=== PATIENT | male | born 1990 ===

== ENCOUNTER 2018-04-06 14:56 | Inpatient (IN) ==
[2018-04-06] MEDS ORDERED: Diphtheria/Tetanus/Pertussis Vaccine Inj 0.5 ML Syringe IM ONE (15:00)
[2018-04-06] MEDS ORDERED: ceFAZolin 2 GM Premix Inj 2 GM/50 ML PIGGYBACK IV.SIG ONE (15:00)
[2018-04-06] MEDS ORDERED: Naloxone Inj 0.4 MG/ML Vial IV.PUSH PRN (15:26)
[2018-04-06] MEDS ORDERED: Post-op Orders (for Pharmacy) OTHER ONE (15:26)
[2018-04-06 15:28] LABS: Baso % (Auto) 0.4 % (0.0-2.0); Eos # (Auto) 0.1 th/mm3 (0.0-0.4); Eos % (Auto) 0.6 % (0.0-4.0); Hematocrit 42.6 % (39.0-51.0); Hemoglobin 14.9 gm/dL (13.0-17.0); Lymph % (Auto) 21.6 % (9.0-44.0); Mean Corpuscular HGB Conc 34.9 % (32.0-36.0); Mean Platelet Volume 8.8 fL (7.0-11.0); Mono # (Auto) 0.5 th/mm3 (0.0-0.9); Mono % (Auto) 5.5 % (0.0-8.0); Neut # (Auto) 6.6 th/mm3 (1.8-7.7); Neut % (Auto) 71.9 % (16.0-70.0); Platelet Count 176 th/mm3 (150-450); Red Blood Count 4.79 mil/mm3 (4.50-5.90); Red Cell Distribution Width 13.9 % (11.6-17.2); White Blood Count 9.2 th/mm3 (4.0-11.0)
[2018-04-06] MEDS ORDERED: Succinylcholine Inj 100 MG/5 ML Syringe IV.PUSH ONE (15:29)
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
[2018-04-06] MEDS ORDERED: Morphine Inj 4 MG/ML Vial IV.PUSH PRN (15:33)
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
[2018-04-06 15:45] LABS: Activated Partial Thrombo Time 20.6 sec (23.4-31.7); INR 1.1 Ratio; Prothrombin Time 10.8 sec (9.8-11.6)
[2018-04-06] MEDS ORDERED: Sugammadex Inj 200 MG/2 ML Vial IV.PUSH ONE (16:13)
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
[2018-04-06] MEDS ORDERED: fentaNYL Citrate Inj 100 MCG/2 ML Ampul ONE ×2 (16:56)
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
[2018-04-06] MEDS: Sod Chloride 0.9% Inj 1,000 ML IV.CONT SCH (17:02)
[2018-04-06] MEDS ORDERED: *Meperidine Inj 25 MG/ML Vial PERIprocedural Use ONLY ONE (17:06)
[2018-04-06] MEDS: Famotidine 20 MG Tablet PO SCH (20:26)
[2018-04-06] MEDS: ceFAZolin 1 GM Premix Inj 1 GM/50 ML FROZ.PIGGY IV.SIG SCH (22:03)
[2018-04-07] MEDS: Sod Chloride 0.9% Inj 1,000 ML IV.CONT SCH (02:55)
[2018-04-07] MEDS: ceFAZolin 1 GM Premix Inj 1 GM/50 ML FROZ.PIGGY IV.SIG SCH ×2 (06:21→14:04)
[2018-04-07] MEDS ORDERED: Senna/Docusate Sodium 8.6/50 MG Tablet PO SCH (09:00)
[2018-04-07] MEDS: Famotidine 20 MG Tablet PO SCH (09:56)
[2018-04-07 10:58] LABS: Baso % (Auto) 0.1 % (0.0-2.0); Eos % (Auto) 0.1 % (0.0-4.0); Hematocrit 44.5 % (39.0-51.0); Hemoglobin 14.6 gm/dL (13.0-17.0); Lymph # (Auto) 1.2 th/mm3 (1.0-4.8); Lymph % (Auto) 9.3 % (9.0-44.0); Mean Corpuscular HGB Conc 32.8 % (32.0-36.0); Mean Corpuscular Volume 91.5 fL (80.0-100.0); Mean Platelet Volume 8.7 fL (7.0-11.0); Mono # (Auto) 0.6 th/mm3 (0.0-0.9); Mono % (Auto) 4.8 % (0.0-8.0); Neut % (Auto) 85.7 % (16.0-70.0); Platelet Count 167 th/mm3 (150-450); Red Blood Count 4.86 mil/mm3 (4.50-5.90); Red Cell Distribution Width 13.9 % (11.6-17.2); White Blood Count 12.9 th/mm3 (4.0-11.0)
[2018-04-07 11:59] LABS: Anion Gap 9 meq/L (5-15); Blood Urea Nitrogen 9 mg/dL (7-18); Calcium 8.7 mg/dL (8.5-10.1); Carbon Dioxide 24.8 meq/L (21.0-32.0); Chloride 108 meq/L (98-107); Glomerular Filtration Rate Greater Than 89 mL/min (>89); Glucose,Random 126 mg/dL (74-106); Potassium 3.9 meq/L (3.5-5.1); Sodium 142 meq/L (136-145)
--- NOTE | 2018-04-07 14:24 | ECHRPT ---
Indication: Pericardial effusion CONCLUSIONS Normal left ventricular size. Wall thickness is normal. The left ventricular systolic function is normal with an estimated ejection fraction in the range of 55-60%. The estimated pulmonary arterial pressure is 37 mmHg. BP: / HR: Rhythm: MEASUREMENTS (Male / Female) Normal Values Technical Quality: 2D ECHO LV Diastolic Diameter PLAX 4.9 cm 4.2 - 5.9 / 3.9 - 5.3 cm LV Systolic Diameter PLAX 3.8 cm IVS Diastolic Thickness 1.1 cm 0.6 - 1.0 / 0.6 - 0.9 cm LVPW Diastolic Thickness 0.9 cm 0.6 - 1.0 / 0.6 - 0.9 cm LV Relative Wall Thickness 0.4 RV Internal Dim ED PLAX 2.4 cm LVOT Diameter 1.6 cm Aortic Root Diameter 2.4 cm LA Systolic Diameter LX 3.4 cm 3.0 - 4.0 / 2.7 - 3.8 cm LV Ejection Fraction MOD BP 71.0 % >= 55 % LV Ejection Fraction MOD 4C 69.5 % LV Ejection Fraction 4C AL 70.0 % LV Ejection Fraction MOD 2C 70.3 % LV Ejection Fraction 2C AL 71.0 % M-MODE Aortic Root Diameter MM 3.7 cm LA Systolic Diameter MM 3.8 cm LA Ao Ratio MM 1.0 DOPPLER AV Peak Velocity 201.0 cm/s AV Peak Gradient 16.2 mmHg LVOT Peak Velocity 152.0 cm/s LVOT Peak Gradient 9.2 mmHg AV Area Cont Eq pk 1.5 cm Mitral E Point Velocity 110.0 cm/s Mitral A Point Velocity 102.0 cm/s Mitral E to A Ratio 1.1 LV E' Lateral Velocity 18.6 cm/s Mitral E to LV E' Lateral Ratio 5.9 LV E' Septal Velocity 14.6 cm/s Mitral E to LV E' Septal Ratio 7.5 TR Peak Velocity 259.0 cm/s TR Peak Gradient 27.0 mmHg Right Atrial Pressure 10.0 mmHg Pulmonary Artery Systolic Pressu 36.8 mmHg Right Ventricular Systolic Press 36.8 mmHg PV Peak Velocity 194.0 cm/s PV Peak Gradient 15.1 mmHg FINDINGS LEFT VENTRICLE Normal left ventricular size. Wall thickness is normal. The left ventricular systolic function is normal with an estimated ejection fraction in the range of 55-60%. RIGHT VENTRICLE Normal right ventricular size and systolic function. LEFT ATRIUM The left atrial size is normal. RIGHT ATRIUM The right atrial size is normal. ATRIAL SEPTUM Normal atrial septal thickness without atrial level shunting by limited color doppler interrogation. AORTA The aortic root and proximal ascending aorta are normal in size on limited imaging. MITRAL VALVE Structurally normal mitral valve. No mitral valve stenosis or regurgitation. AORTIC VALVE Trileaflet aortic valve. No aortic valve stenosis or regurgitation. TRICUSPID VALVE The estimated pulmonary arterial pressure is 37 mmHg. PULMONARY VALVE No pulmonary valve regurgitation or stenosis. VESSELS The inferior vena cava is normal in size. PERICARDIUM No pericardial effusion. Hakeem Gutierrez MD, FACC, [facility] (Electronically Signed) Final Date:07 April 2018 14:24
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
== END 2018-04-07 16:57 | disposition home or self-care (01) ==
LOC: NEPI 14:56 → EDBD 15:26 → NEDA 15:26 → N06 18:16
PROVIDERS: ADMIT Surgery; ATTEND Surgery